=== PATIENT | male | born 1975 | race Caucasian/White ===

== ENCOUNTER 2016-11-06 12:36 | Emergency (ER) | payer OTHER ==
[2016-11-06 13:01] VITALS: BP 130/70
--- NOTE | 2016-11-06 13:39 | UC ---
[facility] HPI - HPI Summary HPI Summary: R lower jaw dental pain for a couple of weeks, has had facial swelling that is going down. No relief with ice and ibuprofen. Is working with a dentist on extensive work, but it is a slow process. Has appointment in 2 days. No fever or vomiting. - History of Current Complaint Hx Obtained From: Patient Onset/Duration: Gradual Onset, Lasting Weeks Severity: Moderate Aggravating: Chewing <Jacquelin Negron - Last Filed: 11/06/16 13:43> <Nina Zapien - Last Filed: 11/06/16 14:12> - History of Current Complaint Chief Complaint: UCDentalProblem Stated Complaint: DENTAL PAIN Time Seen by Provider: 11/06/16 13:25 - Allergies/Home Medications Allergies/Adverse Reactions: Allergies Allergy/AdvReac Type Severity Reaction Status Date / Time Amoxicillin Allergy throat Verified 11/06/16 12:58 closed off Home Medications: Home Medications Bupropion XL* [Wellbutrin XL *] 600 mg PO DAILY 11/06/16 [History Confirmed ] PMH/Surg Hx/FS Hx/Imm Hx Previously Healthy: Yes - Surgical History Surgical History: Yes Surgery Procedure, Year, and Place: wisdom teeth - Family History Known Family History: Positive: Hypertension - Social History Occupation: Employed Part-time Alcohol Use: None Substance Use Type: None Smoking Status (MU): Former Smoker <Jacquelin Negron - Last Filed: 11/06/16 13:43> Review of Systems Constitutional: Negative Skin: Negative Eyes: Negative ENT: Dental Pain Respiratory: Negative Cardiovascular: Negative Gastrointestinal: Negative Genitourinary: Negative Motor: Negative Neurovascular: Negative Musculoskeletal: Negative Neurological: Negative Psychological: Negative All Other Systems Reviewed And Are Negative: Yes <Jacquelin Negron - Last Filed: 11/06/16 13:43> Physical Exam Triage Information Reviewed: Yes Appearance: Well-Appearing, No Pain Distress, Well-Nourished Vital Signs: Initial Vital Signs Temp 98.9 F 11/06/16 12:58 Pulse 88 11/06/16 12:58 Resp 18 11/06/16 12:58 BP 130/70 11/06/16 12:58 Pulse Ox 100 11/06/16 12:58 Vital Signs Reviewed: Yes Eye Exam: Normal Eyes: Positive: Conjunctiva Clear ENT Exam: Normal ENT: Positive: Normal ENT inspection, Hearing grossly normal, Pharynx normal, TMs normal Dental: Positive: Percussion Tenderness @ - #30 and #31, Gross Decay/Caries @ - multiple Neck exam: Normal Respiratory Exam: Normal Respiratory: Positive: Chest non-tender, Lungs clear, Normal breath sounds, No respiratory distress, No accessory muscle use Cardiovascular Exam: Normal Cardiovascular: Positive: RRR, No Murmur Musculoskeletal Exam: Normal Neurological Exam: Normal Neurological: Positive: Alert Psychological Exam: Normal Skin Exam: Normal <Jacquelin Negron - Last Filed: 11/06/16 13:43> Vital Signs: Initial Vital Signs Temp 98.9 F 11/06/16 12:58 Pulse 88 11/06/16 12:58 Resp 18 11/06/16 12:58 BP 130/70 11/06/16 12:58 Pulse Ox 100 11/06/16 12:58 <Nina Zapien - Last Filed: 11/06/16 14:12> Dental Complaint Course/Dx - Differential Dx/Diagnosis Provider Diagnoses: Toothache #30 and #31 <Jacquelin Negron - Last Filed: 11/06/16 13:43> Discharge <Jacquelin Negron - Last Filed: 11/06/16 13:43> <Nina Zapien - Last Filed: 11/06/16 14:12> - Discharge Plan Condition: Stable Disposition: HOME Prescriptions: Clindamycin Cap(NF) [Cleocin 300 mg Cap(NF)] 300 mg PO TID #21 cap Hydrocodone-Acetaminophen [[place] 5-325 mg] 1 tab PO TID PRN #9 tab MDD 3 PRN Reason: pain Patient Education Materials: Dental Abscess (ED) Referrals: Jayro Davis MD [Primary Care Provider] - 2 Weeks Additional Instructions: Please follow up with your dentist as scheduled. Attestation Statement User Type: Provider - I was available for consult. This patient was seen by the [facility]. The patient was not presented to, seen by, or examined by me. -Tomas <Nina Zapien - Last Filed: 11/06/16 14:12>
== END 2016-11-06 13:50 | disposition home or self-care (01) ==
LOC: UCEAST 12:36
DX: K08.89 Other specified disorders of teeth and supporting structures (principal)
CPT/HCPCS: 99212; G0463

== ENCOUNTER 2018-09-23 09:36 | Emergency (ER) | payer MEDICAID, OTHER ==
[2018-09-23 10:07] VITALS: BP 129/89
--- NOTE | 2018-09-23 10:31 | UC ---
Dental HPI - HPI Summary HPI Summary: 42 yo male presents with right upper tooth pain. He tells me that for the last few weeks has been having intermittent pain in this tooth/gum. Over the last 3- 4 days has had increased pain and swelling. He has been taking ibuprofen for his discomfort with little relief. He admits that he has a broken tooth in this area and does not want to see a dentist because "all he wants to do is pull teeth". He is eating and drinking well. Denies fever or chills. - History of Current Complaint Chief Complaint: UCDentalProblem Stated Complaint: DENTAL PAIN Time Seen by Provider: 09/23/18 10:31 Hx Obtained From: Patient Onset/Duration: Gradual Onset Severity: Moderate Pain Intensity: 8 Pain Scale Used: 0-10 Numeric - Allergies/Home Medications Allergies/Adverse Reactions: Allergies Allergy/AdvReac Type Severity Reaction Status Date / Time amoxicillin Allergy Airway Verified 09/23/18 10:00 Obstruction PMH/Surg Hx/FS Hx/Imm Hx Psychological History: Anxiety, Depression, Bipolar Disorder - Surgical History Surgical History: Yes Surgery Procedure, Year, and Place: wisdom teeth. tubes in ears as a child - Family History Known Family History: Positive: Hypertension - Social History Lives: With Family Alcohol Use: None Substance Use Type: None Smoking Status (MU): Never Smoked Tobacco Review of Systems All Other Systems Reviewed And Are Negative: Yes Constitutional: Positive: Negative Skin: Positive: Negative ENT: Positive: Dental Pain Respiratory: Positive: Negative Cardiovascular: Positive: Negative Neurological: Positive: Negative Psychological: Positive: Negative Physical Exam - Summary Physical Exam Summary: GENERAL: NAD. WDWN. No pain distress. SKIN: No rashes, sores, lesions, or open wounds. HEENT: Head: AT/NC Ears: Hearing grossly normal. TMs intact, no bulging, erythema, or edema. Nose: Nasal mucosa pink and moist. NTTP maxillary and frontal sinus. Throat: Posterior oropharynx without exudates, erythema, or tonsillar enlargement. Uvula midline. NECK: Supple. Nontender. No lymphadenopathy. CHEST: No accessory muscle use. Breathing comfortably and in no distress. CV: Pulses intact. Cap refill <2seconds NEURO: Alert. PSYCH: Age appropriate behavior. Triage Information Reviewed: Yes Vital Signs: Initial Vital Signs Temp 98.9 F 09/23/18 10:02 Pulse 73 09/23/18 10:02 Resp 18 09/23/18 10:02 BP 129/89 09/23/18 10:02 Pulse Ox 100 09/23/18 10:02 Vital Signs Reviewed: Yes Dental: Positive: Gross Decay/Caries @ - throughout, Dental Fracture @ - Tooth # 3, Abscess @ - Tooth #3. Negative: Cellulitis @, Cervical Lymphadenopathy, Bleeding Dental Complaint Course/Dx - Course Course Of Treatment: iSTOP: Reference #: [id number] and ok. Tooth #3 abscess. - Differential Dx/Diagnosis Provider Diagnosis: Dental abscess Discharge - Sign-Out/Discharge Documenting (check all that apply): Patient Departure All imaging exams completed and their final reports reviewed: No Studies - Discharge Plan Condition: Stable Disposition: HOME Prescriptions: Acetaminophen with Codeine [Acetaminophen-Cod #3 Tablet] 1 each PO BID PRN #6 tablet MDD 2 PRN Reason: Pain Clindamycin Cap(NF) [Clindamycin Cap 300 mg Cap(NF)] 300 mg PO TID #21 cap Patient Education Materials: Dental Abscess (ED) Referrals: Naya Gray NP [Primary Care Provider] - Additional Instructions: If you develop a fever, shortness of breath, chest pain, new or worsening symptoms - please call your PCP or go to the ED. I strongly recommend that you follow up with your dentist for further and continued treatment of your tooth - Billing Disposition and Condition Condition: STABLE Disposition: Home
== END 2018-09-23 10:48 | disposition home or self-care (01) ==
LOC: UCEAST 09:36
DX: K04.7 Periapical abscess without sinus (principal); K03.81 Cracked tooth; K02.9 Dental caries, unspecified; F41.9 Anxiety disorder, unspecified; F31.9 Bipolar disorder, unspecified; Z88.0 Allergy status to penicillin
CPT/HCPCS: 99212; G0463